=== PATIENT | male | born 1990 | race Two or more races ===

== ENCOUNTER 2022-04-21 17:23 | Emergency (ER) | payer MEDICAID ==
[~2022-04-21] VITALS: Ht 190.5 cm; Wt 87.0 kg
[2022-04-21 20:38] LABS: BASOPHILS % 0.4 % (0.0-2.0); EOSINOPHILS % 3.5 % (0.0-5.0); HEMATOCRIT. 34.4 % (42.0-52.0); HEMOGLOBIN. 11.6 g/dL (14.0-18.0); LYMPHOCYTES % 40.4 % (20.0-50.0); MEAN CORPUSCULAR HEMOGLOBIN 29.5 pg (28.0-32.0); MEAN CORPUSCULAR VOLUME 87.7 fL (80.0-94.0); MEAN PLATELET VOLUME 7.3 fl (7.4-10.4); NEUTROPHILS % 48.7 % (40.0-76.0); PLATELET 330 x1000/uL (130-400); RED BLOOD CELL COUNT 3.93 mill/uL (4.7-6.1); RED CELL DISTRIBUTION WIDTH 15.6 % (11.6-14.6)
[2022-04-21 20:45] LABS: CHLORIDE 110 mEq/L (98-107)
[2022-04-21 21:01] LABS: ETHANOL BLOOD < 10 mg/dL
[2022-04-21 21:11] LABS: CARBAMAZEPINE < 0.5 ug/mL (4-12); VALPROIC ACID < 3.0 ug/mL (50-100)
[2022-04-22 09:14] VITALS: BP 158/89
[2022-04-22] MEDS ORDERED: LORAZEPAM 1MG TABLET PO ONE (09:15)
== END 2022-04-22 11:53 | disposition home or self-care (01) ==
LOC: ER 17:23 → EDBD 17:23 → ER 04-22 11:53
DX: R45.851 Suicidal ideations (principal); J45.909 Unspecified asthma, uncomplicated; I10 Essential (primary) hypertension; Z88.0 Allergy status to penicillin
CPT/HCPCS: 36415; 80053; 80156; 80165; 80185; 80307; 80320; 80329; 85025; 99283; G0480

== ENCOUNTER 2022-08-06 09:39 | Emergency (ER) | payer MEDICAID ==
[~2022-08-06] VITALS: Ht 185.4 cm; Wt 88.0 kg
[2022-08-06 10:05] VITALS: BP 165/107
== END 2022-08-06 15:51 | disposition left against medical advice (07) ==
LOC: ER 09:39
DX: Z53.21 Procedure and treatment not carried out due to patient leaving prior to being seen by health care provider (principal)

== ENCOUNTER 2022-08-19 09:00 | Emergency (ER) | payer MEDICAID ==
[~2022-08-19] VITALS: Ht 185.4 cm; Wt 97.0 kg
[2022-08-19 10:48] LABS: BASOPHILS % 0.9 % (0.0-2.0); EOSINOPHILS % 1.6 % (0.0-5.0); HEMATOCRIT. 40.8 % (42.0-52.0); HEMOGLOBIN. 13.7 g/dL (14.0-18.0); LYMPHOCYTES % 24.6 % (20.0-50.0); MEAN CORPUSCULAR HEMOGLOBIN 28.8 pg (28.0-32.0); MEAN CORPUSCULAR VOLUME 85.5 fL (80.0-94.0); MEAN PLATELET VOLUME 7.3 fl (7.4-10.4); MONOCYTES % 6.6 % (2.0-8.0); NEUTROPHILS % 66.3 % (40.0-76.0); PLATELET 298 x1000/uL (130-400); RED BLOOD CELL COUNT 4.77 mill/uL (4.7-6.1); RED CELL DISTRIBUTION WIDTH 14.1 % (11.6-14.6)
[2022-08-19 10:53] LABS: CLARITY URINE CLEAR (CLEAR); COLOR URINE YELLOW (YELLOW); KETONES URINE TRACE (NEGATIVE); LEUKOCYTE ESTERASE URINE NEGATIVE (NEGATIVE); NITRITE URINE NEGATIVE (NEGATIVE); OCCULT BLOOD URINE NEGATIVE (NEGATIVE); PROTEIN URINE NEGATIVE (NEGATIVE); SPECIFIC GRAVITY URINE 1.029 (1.005-1.030)
[2022-08-19 11:05] LABS: CHLORIDE 106 mEq/L (98-107)
[2022-08-19 11:13] LABS: CREATINE KINASE 838 IU/L (39-308); ETHANOL BLOOD < 10 mg/dL
[2022-08-19 11:24] LABS: *AMPHETAMINES SCREEN URINE PRESUMTIVE POSITIVE (NEGATIVE); *BARBITURATES SCREEN URINE NEGATIVE (NEGATIVE); *BENZODIAZEPINES SCREEN URINE NEGATIVE (NEGATIVE); *COCAINE SCREEN URINE NEGATIVE (NEGATIVE); CANNABINOID URINE SCREEN NEGATIVE (NEGATIVE); METHADONE URINE SCREEN NEGATIVE (NEGATIVE); OPIATES URINE SCREEN NEGATIVE (NEGATIVE); PHENCYCLIDINE URINE SCREEN NEGATIVE (NEGATIVE)
[2022-08-19] MEDS: SERTRALINE HCL 50MG TABLET PO SCH (16:00)
[2022-08-19] MEDS: OLANZAPINE 5MG TABLET PO SCH (16:00)
[2022-08-19 18:45] VITALS: BP 125/51
== END 2022-08-19 21:35 | disposition home or self-care (01) ==
LOC: ER 09:00
DX: R45.851 Suicidal ideations (principal); F19.10 Other psychoactive substance abuse, uncomplicated; J45.909 Unspecified asthma, uncomplicated; Z20.822 Contact with and (suspected) exposure to COVID-19; Z13.9 Encounter for screening, unspecified; Z88.0 Allergy status to penicillin; Z86.59 Personal history of other mental and behavioral disorders
CPT/HCPCS: 36415; 80053; 80305; 80307; 80320; 80329; 81003; 82140; 82550; 82962; 83690; 85025; 86850; 86900; 86901; 87426; 93005; 99284; C9803; G0480

== ENCOUNTER 2022-09-21 09:19 | Emergency (ER) | payer MEDICAID ==
[~2022-09-21] VITALS: Ht 188 cm; Wt 100.0 kg
[2022-09-21 09:36] VITALS: BP 161/108
[2022-09-21] MEDS ORDERED: BO1 TP (18:45)
== END 2022-09-21 14:55 | disposition left against medical advice (07) ==
LOC: ER 09:19
DX: Z53.21 Procedure and treatment not carried out due to patient leaving prior to being seen by health care provider (principal)

== ENCOUNTER 2022-09-21 15:26 | Emergency (ER) | payer MEDICAID ==
[~2022-09-21] VITALS: Ht 188 cm; Wt 100.0 kg
[2022-09-21 15:36] VITALS: BP 150/94
[2022-09-21] MEDS ORDERED: BO1 TP (18:45)
== END 2022-09-21 19:12 | disposition home or self-care (01) ==
LOC: ER 15:26
DX: S00.81XA Abrasion of other part of head, initial encounter (principal); X58.XXXA Exposure to other specified factors, initial encounter; Y93.89 Activity, other specified; Y92.89 Other specified places as the place of occurrence of the external cause; Y99.8 Other external cause status; R44.2 Other hallucinations; J45.909 Unspecified asthma, uncomplicated; F31.9 Bipolar disorder, unspecified; I10 Essential (primary) hypertension; Z88.0 Allergy status to penicillin
CPT/HCPCS: 99281; Z7610

== ENCOUNTER 2022-10-17 01:35 | Emergency (ER) | payer MEDICAID ==
[~2022-10-17] VITALS: Ht 177.8 cm; Wt 95.0 kg
[~2022-10-17 01:35] MED LIST: BO1 TP
[2022-10-17 01:42] VITALS: BP 164/86
== END 2022-10-17 07:57 | disposition left against medical advice (07) ==
LOC: ER 01:35
DX: Z53.21 Procedure and treatment not carried out due to patient leaving prior to being seen by health care provider (principal)
CPT/HCPCS: 99281

== ENCOUNTER 2022-10-26 18:28 | Emergency (ER) | payer MEDICAID ==
[~2022-10-26] VITALS: Ht 188 cm; Wt 86.0 kg
[2022-10-26] MEDS ORDERED: OLANZAPINE 5MG TABLET ODT PO ONE (20:00)
[2022-10-26 21:39] LABS: MEAN CORPUSCULAR HEMOGLOBIN 28.4 pg (28.0-32.0)
[2022-10-26 21:41] LABS: CLARITY URINE CLEAR (CLEAR); COLOR URINE YELLOW (YELLOW); KETONES URINE NEGATIVE (NEGATIVE); LEUKOCYTE ESTERASE URINE NEGATIVE (NEGATIVE); NITRITE URINE NEGATIVE (NEGATIVE); OCCULT BLOOD URINE NEGATIVE (NEGATIVE); PH URINE 6.5 (4.5-8.0); PROTEIN URINE 1+ (NEGATIVE); SPECIFIC GRAVITY URINE 1.035 (1.005-1.030)
[2022-10-26 21:46] LABS: BASOPHILS % 0.3 % (0.0-2.0); CHLORIDE 109 mEq/L (98-107); EOSINOPHILS % 1.1 % (0.0-5.0); HEMATOCRIT. 35.2 % (42.0-52.0); HEMOGLOBIN. 11.7 g/dL (14.0-18.0); LYMPHOCYTES % 24.6 % (20.0-50.0); MEAN CORPUSCULAR VOLUME 85.5 fL (80.0-94.0); MEAN PLATELET VOLUME 7.4 fl (7.4-10.4); MONOCYTES % 7.8 % (2.0-8.0); NEUTROPHILS % 66.2 % (40.0-76.0); PLATELET 541 x1000/uL (130-400); RED BLOOD CELL COUNT 4.12 mill/uL (4.7-6.1); RED CELL DISTRIBUTION WIDTH 15.1 % (11.6-14.6)
[2022-10-26 21:48] LABS: PROTHROMBIN TIME 10.9 sec (9.6-11.0)
[2022-10-26 22:03] LABS: CREATINE KINASE 379 IU/L (39-308); ETHANOL BLOOD < 10 mg/dL
[2022-10-26 22:05] LABS: *AMPHETAMINES SCREEN URINE PRESUMTIVE POSITIVE (NEGATIVE); *BARBITURATES SCREEN URINE NEGATIVE (NEGATIVE); *BENZODIAZEPINES SCREEN URINE NEGATIVE (NEGATIVE); *COCAINE SCREEN URINE NEGATIVE (NEGATIVE); CANNABINOID URINE SCREEN PRESUMTIVE POSITIVE (NEGATIVE); METHADONE URINE SCREEN NEGATIVE (NEGATIVE); OPIATES URINE SCREEN NEGATIVE (NEGATIVE); PHENCYCLIDINE URINE SCREEN NEGATIVE (NEGATIVE)
[2022-10-27] MEDS: LEVETIRACETAM 500MG TABLET PO SCH ×2 (09:00→20:18)
[2022-10-27] MEDS: SERTRALINE HCL 50MG TABLET PO SCH (11:45)
[2022-10-27] MEDS: RISPERIDONE 1MG TABLET PO SCH (20:18)
[2022-10-28] MEDS: SERTRALINE HCL 50MG TABLET PO SCH (09:00)
[2022-10-28] MEDS: RISPERIDONE 1MG TABLET PO SCH (09:00)
[2022-10-28] MEDS: LEVETIRACETAM 500MG TABLET PO SCH (09:00)
[2022-10-28 14:30] VITALS: BP 145/75
== END 2022-10-28 16:17 ==
LOC: ER 18:28
DX: S80.01XA Contusion of right knee, initial encounter (principal); R45.851 Suicidal ideations; V03.19XA Pedestrian with other conveyance injured in collision with car, pick-up truck or van in traffic accident, initial encounter; Y93.89 Activity, other specified; Y92.89 Other specified places as the place of occurrence of the external cause; Y99.8 Other external cause status; J45.909 Unspecified asthma, uncomplicated; F31.9 Bipolar disorder, unspecified; I10 Essential (primary) hypertension; F20.9 Schizophrenia, unspecified; Z88.0 Allergy status to penicillin; Z20.822 Contact with and (suspected) exposure to COVID-19
CPT/HCPCS: 36415; 70450; 71045; 73562; 73590; 80053; 80305; 80307; 80320; 80329; 81003; 82550; 84443; 84484; 85025; 85610; 87426; 93005; 99285; C9803; G0480

== ENCOUNTER 2022-11-01 15:28 | Emergency (ER) | payer MEDICAID | END 2022-11-01 17:09 | disposition left against medical advice (07) | LOC: ER 15:28 | DX: Z53.21 Procedure and treatment not carried out due to patient leaving prior to being seen by health care provider (principal) ==